=== PATIENT | female | born 1995 | race Caucasian/White ===

== ENCOUNTER 2017-06-05 20:28 | Emergency (ER) | payer MEDICAID ==
[~2017-06-05] VITALS: Ht 177.8 cm; Wt 54.5 kg
[~2017-06-05 20:28] MED LIST: BENADRYL25 M2 PO; REGLAN 10MG10 MG/TAB PO; ZOFRAN 4MG T4 MG/TAB PO
[2017-06-05 20:39] VITALS: TEMP 98.5
[2017-06-05] MEDS ORDERED: PRENATAL (20:41)
[2017-06-05 21:34] LABS: BASO % 0.3 % (0.0-2.0); EOS # 0.1 (0.0-0.7); EOS % 0.6 % (0-4.0); GRAN # 6.1 (1.4-6.5); GRAN % 70.4 % (42.2-75.2); HEMATOCRIT 38.4 % (35.0-45.0); LYMPH # 1.8 (1.2-3.4); LYMPH % 20.6 % (20.0-51.0); MEAN CELL VOLUME 82 fl (80.0-95.0); MEAN CORPUSCULAR HEMOGLOBIN 28 pg (26.0-32.0); MEAN CORPUSCULAR HGB CONC 34 g/dl (33.0-37.0); MEAN PLATELET VOLUME 10.2 fl (7.4-10.4); MONO # 0.7 (0.1-0.6); MONO % 7.8 % (1.7-9.3); PLATELET COUNT 217 K/mm3 (130-400); WHITE BLOOD COUNT 8.6 K/mm3 (4.8-10.8)
[2017-06-05 21:41] LABS: COLLECTION METHOD CLEAN CATCH
[2017-06-05 21:46] LABS: MUCOUS Present /lpf; PH 6 (5-8); SQUAMOUS EPITHELIAL 0-2 /hpf; URINE APPEARANCE Clear; URINE BACTERIA Rare /hpf; URINE BILIRUBIN Negative (NEGATIVE); URINE BLOOD Negative (NEGATIVE); URINE COLOR Straw; URINE GLUCOSE Negative (NEGATIVE); URINE KETONE Negative (NEGATIVE); URINE LEUKOCYTE ESTERASE Negative (NEGATIVE); URINE PROTEIN(semi-quant) Negative (NEGATIVE); URINE RBC 0-2 /hpf; URINE UROBILINOGEN Negative (NEGATIVE); URINE WBC 0-2 /hpf
[2017-06-05 21:47] LABS: ALANINE AMINOTRANSFERASE 24 U/L (9-52); ALBUMIN 4.3 gm/dL (3.5-5.0); ALKALINE PHOSPHATASE 56 U/L (50-136); ANION GAP 10 mmol/L (7-16); BILIRUBIN,TOTAL 0.5 mg/dL (0.0-1.0); BLOOD UREA NITROGEN 11 mg/dL (7-17); CALCIUM 9.2 mg/dL (8.4-10.2); CARBON DIOXIDE 23 mmol/L (22-30); CHLORIDE 102 mmol/L (98-107); CREATININE, serum 0.56 mg/dL (0.52-1.25); GLUCOSE 83 mg/dL (74-106); POTASSIUM 3.4 mmol/L (3.4-5.0); SODIUM 134 mmol/L (137-145); TOTAL PROTEIN 7.6 gm/dL (6.4-8.2)
[2017-06-05 21:55] LABS: C-REACTIVE PROTEIN < 0.5 mg/dL (0.0-0.9)
[2017-06-05 22:34] VITALS: BP 112/66; PULSE 63
== END 2017-06-05 22:43 | disposition home or self-care (01) ==
LOC: COL.ER 20:28
PROVIDERS: Family Medicine
DX: O26.891 Other specified pregnancy related conditions, first trimester (principal); R10.2 Pelvic and perineal pain; Z3A.13 13 weeks gestation of pregnancy
CPT/HCPCS: J2270; J2550; J7030

== ENCOUNTER 2017-11-25 05:52 | Inpatient (IN) | payer MEDICAID ==
[~2017-11-25] VITALS: Ht 175.3 cm; Wt 72.7 kg
[2017-11-25] VITALS (51 sets, daily range): BP systolic 94–125; BP diastolic 51–89; PULSE 67–103; TEMP 97.9–98.5
[~2017-11-25 05:52] MED LIST changes: +PRENATAL
[2017-11-25 08:44] LABS: BASO % 0.3 % (0.0-2.0); EOS # 0.1 (0.0-0.7); EOS % 0.8 % (0-4.0); GRAN # 8.3 (1.4-6.5); GRAN % 70.1 % (42.2-75.2); LYMPH # 2.2 (1.2-3.4); LYMPH % 18.8 % (20.0-51.0); MEAN CELL VOLUME 74 fl (80.0-95.0); MEAN CORPUSCULAR HGB CONC 32 g/dl (33.0-37.0); MEAN PLATELET VOLUME 8.8 fl (7.4-10.4); MONO # 1.1 (0.1-0.6); PLATELET COUNT 266 K/mm3 (130-400); RED BLOOD COUNT 4.02 M/mm3 (4.10-5.30); REDCELL DISTRIBUTION WIDTH-CV 16.3 % (11.5-14.5)
[2017-11-25 08:46] LABS: HEMATOCRIT 29.7 % (35.0-45.0); HEMOGLOBIN 9.5 g/dl (12.0-15.0); MEAN CORPUSCULAR HEMOGLOBIN 24 pg (26.0-32.0)
[2017-11-26 05:13] VITALS: BP 134/72; PULSE 80; TEMP 99.3
[2017-11-26 06:30] VITALS: BP 111/68; PULSE 77; TEMP 98.2
[2017-11-26 08:01] LABS: HEMATOCRIT 28.7 % (35.0-45.0)
[2017-11-26] MEDS ORDERED: FERROUS SU325 MG/TAB PO (08:43)
[2017-11-26] MEDS ORDERED: IBU600 MG PO (08:43)
[2017-11-26 11:45] VITALS: BP 107/58; PULSE 88; TEMP 97.6
[2017-11-26 15:30] VITALS: BP 99/52; PULSE 79; TEMP 98.1
[2017-11-26 19:30] VITALS: BP 100/56; PULSE 76; TEMP 98
[2017-11-27 07:00] VITALS: BP 103/56; PULSE 65; TEMP 98.5
[2017-11-27] MEDS ORDERED: PERCOCET 325 MG1 TA2 PO (07:31)
== END 2017-11-27 12:10 | disposition home or self-care (01) | DRG 775 ==
LOC: LDR 05:52 → OB 07:19
PROVIDERS: Obstetrics & Gynecology
PROC: 10E0XZZ Delivery of Products of Conception, External Approach (ICD-10-PCS; principal; 2017-11-25)
PROC: 0KQM0ZZ Repair Perineum Muscle, Open Approach (ICD-10-PCS; 2017-11-25)
PROC: 10907ZC Drainage of Amniotic Fluid, Therapeutic from Products of Conception, Via Natural or Artificial Opening (ICD-10-PCS; 2017-11-25)
PROC: 3E033VJ Introduction of Other Hormone into Peripheral Vein, Percutaneous Approach (ICD-10-PCS; 2017-11-25)
DX: O70.1 Second degree perineal laceration during delivery (principal); Z37.0 Single live birth; O36.0930 Maternal care for other rhesus isoimmunization, third trimester, not applicable or unspecified; O99.02 Anemia complicating childbirth; Z3A.40 40 weeks gestation of pregnancy
CPT/HCPCS: J2590; J2791; J7120

== ENCOUNTER 2020-08-26 11:23 | Emergency (ER) | payer SELFPAY ==
[~2020-08-26] VITALS: Ht 180.3 cm; Wt 54.5 kg
[~2020-08-26 11:23] MED LIST changes: +FERROUS SU325 MG/TAB PO; +IBU600 MG PO; +PERCOCET 325 MG1 TA2 PO
[2020-08-26] MEDS ORDERED: CRUTCHES MC (12:46)
[2020-08-26 14:23] VITALS: BP 121/60; PULSE 95; TEMP 98.8
== END 2020-08-26 14:23 | disposition home or self-care (01) ==
LOC: COL.ER 11:23
DX: S92.151A Displaced avulsion fracture (chip fracture) of right talus, initial encounter for closed fracture (principal); S80.212A Abrasion, left knee, initial encounter; W18.42XA Slipping, tripping and stumbling without falling due to stepping into hole or opening, initial encounter

== ENCOUNTER 2023-12-31 03:24 | Emergency (ER) | payer SELFPAY ==
[~2023-12-31] VITALS: Ht 177.8 cm; Wt 61.4 kg
[~2023-12-31 03:24] MED LIST changes: +BACTRIM DS 8001 TAB PO; +CRUTCHES MC; +FLEXERIL 1010 MG/TAB PO; +MEDROL 4MG DOSPA4 MG PO
[2023-12-31 03:29] VITALS: TEMP 98.2
[2023-12-31] MEDS ORDERED: diphenhydrAMINE 50 MG/ML 1 ML VIAL IM ONE (03:45)
[2023-12-31 04:05] LABS: COLLECTION METHOD CLEAN CATCH
[2023-12-31 04:14] LABS: PH 5.5 (5.0-8.5); URINE APPEARANCE CLOUDY (CLEAR/HAZY); URINE BLOOD NEGATIVE (NEGATIVE); URINE COLOR YELLOW (YELLOW); URINE GLUCOSE NEGATIVE (NEGATIVE); URINE KETONE NEGATIVE (NEGATIVE); URINE NITRATE NEGATIVE (NEGATIVE); URINE PROTEIN(semi-quant) NEGATIVE (NEGATIVE)
[2023-12-31 05:06] VITALS: BP 107/88; PULSE 76
== END 2023-12-31 05:06 | disposition home or self-care (01) ==
LOC: COL.ER 03:24
PROVIDERS: Emergency Medicine
DX: R51.9 Headache, unspecified (principal); R11.0 Nausea; V89.2XXA Person injured in unspecified motor-vehicle accident, traffic, initial encounter; Y92.410 Unspecified street and highway as the place of occurrence of the external cause
CPT/HCPCS: J1200; J2765